=== PATIENT | male | born 1965 | race Caucasian/White ===

== ENCOUNTER → 2016-11-24 | Outpatient (CLI) | payer OTHER ==
--- NOTE | 2016-11-24 12:19 | US ---
Left upper extremity soft tissue ultrasound. HISTORY: Palpable abnormality. TECHNIQUE: Grayscale and color Doppler limited ultrasound of the left upper extremity was performed within the area of clinical concern. FINDINGS: Roughly 5 mm subjacent to the dermis is an irregular hypoechoic mass. This mass measures 3 cm x 2.8 cm x 6.1 cm in diameter. There is an echogenic septum noted. No additional findings noted. A drainable fluid collection. IMPRESSION: The palpable abnormality within the left arm is abnormal. This may be workforce services representative of a thi mass. The patient would likely benefit from evaluation for a possible primary malignancy with additional imaging and a biopsy. Electronically signed by: Fidencio Lieberman MD 11/24/2016 12:18 PM CDT
== END | disposition home or self-care (01) ==
LOC: GMAB 09:08
PROVIDERS: ATTEND Family Medicine
DX: R22.32 Localized swelling, mass and lump, left upper limb (principal); M25.562 Pain in left knee; R53.82 Chronic fatigue, unspecified

== ENCOUNTER → 2016-12-06 | Outpatient (CLI) | payer OTHER | END | disposition home or self-care (01) | LOC: GMAB 10:57 | PROVIDERS: ATTEND Family Medicine | DX: E29.1 Testicular hypofunction (principal) ==

== ENCOUNTER → 2016-12-06 | Outpatient (CLI) | payer OTHER ==
--- NOTE | 2016-12-06 09:08 | US ---
History: Left arm mass. DATE OF SERVICE: 12/06/2016 Superficial ultrasound: Seven images are submitted from an ultrasound-guided aspiration performed by the patient's surgeon. The image demonstrates a needle within the complex lesion which diminishes in overall size. No complication. IMPRESSION: Images from a ultrasound-guided needle aspiration performed by the patient's surgeon. Electronically signed by: Cristela Mcarthur MD 12/06/2016 9:07 AM CDT
--- NOTE | 2016-12-06 11:11 | OP ---
DATE OF PROCEDURE: 12/06/16 PREOPERATIVE DIAGNOSIS: 1. Hypoechoic subcutaneous mass, left upper arm. POSTOPERATIVE DIAGNOSIS: 1. Hypoechoic subcutaneous mass, left upper arm. PROCEDURE: 1. Sonographically guided aspiration of subcutaneous mass times 2 of the upper arm. SURGEON: Yunior Wheatley MD. BLOCK CAPTAIN: None. ANESTHESIA: Local infiltration of 1% lidocaine. INDICATION: The patient is a 51-year-old male who had a flu shot in his deltoid in June of last year. At some point, he has developed recently a mass starting about Angel[place]. It is distal to the deltoid injection site. It has gotten bigger and tender. There has been no drainage, no overlying erythema , no fever or chills. There is no history of trauma. Ultrasound revealed this to be a hypoechoic mass. He was brought to the Ultrasound Suite today for sonographically guided aspiration and/or needle core biopsy under local anesthesia. FINDINGS: Approximately 45 mL of purulent, non-smelling fluid was obtained. The second cavity was bloodier. These masses were noted to have gotten significantly smaller with the aspiration. PROCEDURE: The patient was placed in the supine position. His left arm was examined using the ultrasound probe. The proximal arm was prepped with Betadine paint and then draped with towels. Local infiltration of anesthesia was obtained with 1% lidocaine. First, a 25 gauge needle was introduced into the lesion, then the 18 gauge needle was introduced and fluid was easily obtained. It was sent for culture and cytology. A more distal separate lesion was again identified. The arm was again prepped and draped. Local infiltration of anesthesia was obtained and, again, a 25 gauge needle was first advanced, then the 18 gauge needle was advanced. A small amount of somewhat bloodier fluid was obtained. This also was sent for cytology, gram stain, and culture. The patient tolerated the procedure well. Sterile pressure dressing was applied. There was no blood loss. #[id number] [facility]
== END | disposition home or self-care (01) ==
LOC: US 07:40
PROVIDERS: ATTEND Surgery
PROC: 0X9 Anatomical Regions, Upper Extremities, Drainage (ICD-10-PCS; principal; 2016-12-06)
PROC: BH47ZZZ Ultrasonography of Upper Extremity (ICD-10-PCS; 2016-12-06)
PROC: 0X9 Anatomical Regions, Upper Extremities, Drainage (ICD-10-PCS; 2016-12-06)
DX: R22.9 Localized swelling, mass and lump, unspecified (principal)

== ENCOUNTER → 2017-12-06 | Outpatient (CLI) | payer OTHER | LOC: GMAB 17:19 | PROVIDERS: ATTEND Family Medicine | DX: Z00.00 Encounter for general adult medical examination without abnormal findings (principal); R07.9 Chest pain, unspecified | CPT/HCPCS: 83880; 84403; 84443; G0103 ==

== ENCOUNTER → 2019-03-12 | Outpatient (CLI) | payer OTHER | LOC: GMAE 10:19 | PROVIDERS: ATTEND Family Medicine | DX: Z00.00 Encounter for general adult medical examination without abnormal findings (principal) ==

== ENCOUNTER → 2020-05-05 | Outpatient (CLI) | payer OTHER | END | disposition home or self-care (01) | LOC: GMAE 10:15 | PROVIDERS: ATTEND Family Medicine | DX: Z00.00 Encounter for general adult medical examination without abnormal findings (principal); R53.81 Other malaise; R94.8 Abnormal results of function studies of other organs and systems ==

== ENCOUNTER → 2020-06-14 | Outpatient (CLI) | payer OTHER ==
--- NOTE | 2020-06-14 10:32 | RAD ---
EXAM DESCRIPTION: Knee,Right Complete CLINICAL HISTORY: 54 years Male, PAIN IN RIGHT KNEE COMPARISON: None. TECHNIQUE: 4 view radiograph of the right knee. IMPRESSION: No acute displaced fracture. No dislocation. Mild joint space narrowing of the weightbearing knee compartments. Minimal subchondral sclerosis on the medial tibial plateau. No joint line osteophytosis. Mild patellofemoral arthrosis. Question of small suprapatellar knee joint effusion. Minimal lateral patellar tilt. No subluxation. No radiographically apparent soft tissue abnormality. Electronically signed by: Conor Pollard MD 06/14/2020 10:30 AM CDT
--- NOTE | 2020-06-14 10:38 | RAD ---
EXAM DESCRIPTION: Pelvis CLINICAL HISTORY: 54 years Male, HIP PAIN RIGHT COMPARISON: None. FINDINGS: Single view of the pelvis demonstrates the bony pelvic ring intact. SI joints pelvic sidewall as well as superior and inferior pubic rami intact. Normal appearance of the hips bilaterally. No fracture or dislocation or osteonecrosis noted on the right. No bony or soft tissue masses seen. IMPRESSION: Normal pelvis one view. Electronically signed by: Pierre Paulson MD 06/14/2020 10:36 AM CDT
== END ==
LOC: RAD 08:00
PROVIDERS: ATTEND Orthopaedic Surgery
DX: M25.559 Pain in unspecified hip (principal); M22.2X1 Patellofemoral disorders, right knee; M24.19 Other articular cartilage disorders, other specified site; M25.862 Other specified joint disorders, left knee; M25.461 Effusion, right knee

== ENCOUNTER → 2020-06-23 | Outpatient (CLI) | payer OTHER ==
--- NOTE | 2020-06-24 07:49 | MRI ---
Study: MRI of the Right Knee. Indication: TEAR OF MEDIAL MENISCUS Technique: Multiplanar, multi sequence MRI of the right knee was obtained without intravenous contrast. Comparison: None. Findings: ACL, PCL, and lateral collateral ligament complex intact. MCL is lax and bowed indicating sequela of a prior MCL sprain. No acute tear. Obliquely oriented increased PD signal posterior horn and body medial meniscus but without clear articular surface disruption to definitively indicate tear. Lateral meniscus intact. Areas of grade 2 and 3 chondral thinning medial and lateral knee compartments. Low-grade tendinosis quadriceps tendon insertion. Patellar tendon intact. Patella normally located. No high-grade chondral defect patella. Subtle grade 2 chondrosis inferior margin midline and medial femoral trochlea. Small knee effusion. Minimal thickening medial patellar plica. No acute fracture. Mild subcutaneous edema anteromedially. Impression: Obliquely oriented degenerative signal posterior horn and body medial meniscus but without definitive tear. Short-term follow-up MRI may prove useful. Grade 2/3 chondral thinning medial and lateral knee compartments with subtle grade 2 chondrosis medial femoral trochlea. Small knee effusion. Additional findings as above. Electronically signed by: Carlos Galeana MD 06/24/2020 7:47 AM CDT
== END ==
LOC: MRI 06:48
PROVIDERS: ATTEND Orthopaedic Surgery
DX: M23.321 Other meniscus derangements, posterior horn of medial meniscus, right knee (principal); M25.461 Effusion, right knee; M24.19 Other articular cartilage disorders, other specified site

== ENCOUNTER 2020-08-23 03:39 | Emergency (ER) | payer OTHER ==
[2020-08-23] MEDS ORDERED: ACETAMINOPHEN 500 MG TAB PO ONE (04:10)
[2020-08-23] MEDS ORDERED: AZITHROMYCIN 250 MG TAB PO ONE (04:19)
[2020-08-23] MEDS ORDERED: cefTRIAXone SODIUM 1 GM in SODIUM CHL 0.9% 50ML MIN-BAG+ 50 ML IVPB ONE (04:19)
[2020-08-23] MEDS ORDERED: DEXAMETHASONE INJ 10 MG/ML VIAL IV ONE (04:20)
--- NOTE | 2020-08-23 04:25 | ED.PDOC ---
History of Present Illness - General Chief Complaint: General Stated Complaint: COVID +,N/V, SOB, shaking Time Seen by Provider: 08/23/20 04:10 Source: patient Exam Limitations: no limitations - History of Present Illness Timing/Duration: other - 4 days Improving Factors: nothing Worsening Factors: nothing Associated Symptoms: denies symptoms Allergies/Adverse Reactions: Allergies NO KNOWN ALLERGY Allergy (Verified 08/23/20 04:12) Home Medications: Ambulatory Orders Acetaminophen [Tylenol] 650 mg PO Q4HR PRN 7 Days #30 cap 08/23/20 Albuterol Sulfate [Albuterol Sulfate Hfa] 08/23/20 Losartan Potassium 08/23/20 Prednisone 08/23/20 Review of Systems - Review of Systems Constitutional: States: chills, fever EENTM: Denies: blurred vision, tearing Respiratory: States: cough, short of breath Cardiology: Denies: chest pain, palpitations Gastrointestinal/Abdominal: Denies: abdominal pain, diarrhea, nausea Genitourinary: Denies: discharge, frequency, hematuria Musculoskeletal: Denies: back pain, gout, muscle pain, muscle stiffness Skin: Denies: see HPI, change in color, dryness, lesions Neurological: States: anxiety. Denies: depressed, emotional problems, paresthesia, pre-existing deficit, seizure Endocrine: Denies: flushing, intolerance to cold, intolerance to heat, unexplained weight gain, unexplained weight loss Hematologic/Lymphatic: Denies: anemia, easy bleeding, easy bruising Past Medical History (General) - Patient Medical History Hx Seizures: No Hx Stroke: No Hx Dementia: No Hx Asthma: No Hx of COPD: No Hx Cardiac Disorders: No Hx Congestive Heart Failure: No Hx Pacemaker: No Hx Hypertension: Yes Hx Thyroid Disease: No Hx Diabetes: No Hx Gastroesophageal Reflux: No Hx Renal Disease: No Hx Cancer: No Hx of HIV: No Hx Hepatitis C: No Hx MRSA: No Surgical History: cholecystectomy - Vaccination History Hx Influenza Vaccination: Yes - Social History Hx Tobacco Use: No Hx Chewing Tobacco Use: Yes Hx Alcohol Use: No Family Medical History - Family History Father Family History: No Known Living Status: Physical Exam - Physical Exam General Appearance: Alert, Comfortable Eye Exam: bilateral normal Ears, Nose, Throat: hearing grossly normal, normal ENT inspection, normal pharynx, abnormal TM (R) Neck: full range of motion, supple, normal inspection Respiratory: chest non-tender, lungs clear, normal breath sounds, no respiratory distress Cardiovascular/Chest: regular rate, rhythm, no edema, no gallop, tachycardia Peripheral Pulses: radial,right: 2+, radial,left: 2+, posterior tibialis,right: 2+, posterior tibialis,left: 2+ Gastrointestinal/Abdominal: normal bowel sounds, non tender, soft, no organomegaly, no pulsatile mass Back Exam: normal inspection, no CVA tenderness, no vertebral tenderness Extremity: normal range of motion, non-tender, normal inspection Neurologic: valve assembler II-XII nml as tested, no motor/sensory deficits, alert, other - anxious Progress - EKG/XRAY/CT CT: [id number] Departure - Departure Clinical Impression: COVID- 2019 novel coronavirus–infected pneumonia (NCIP)#8211;infected pneumonia (NCIP), Hypokalemia Disposition: Discharge to Home or Self Care Condition: Good Departure Forms: ED Discharge - Pt. Copy, Patient Portal Self Enrollment Instructions: Isolation Precautions Referrals: Alonzo Dooley MD [Primary Care Provider] - 1-2 Weeks Prescriptions: Acetaminophen [Tylenol] 650 mg PO Q4HR PRN 7 Days #30 cap PRN Reason: Fever 100.4 Or Greater Home Medications: Ambulatory Orders Acetaminophen [Tylenol] 650 mg PO Q4HR PRN 7 Days #30 cap 08/23/20 Albuterol Sulfate [Albuterol Sulfate Hfa] 08/23/20 Losartan Potassium 08/23/20 Prednisone 08/23/20 Comments: Please complete your medications as prescribed. Follow-up with primary care physician 1 to 2 days Return to the emergency department immediately if you develop or any hypoxia any trouble breathing
[2020-08-23] MEDS ORDERED: POTASSIUM CHLORIDE 20 MEQ TAB PO ONE (04:27)
--- NOTE | 2020-08-23 04:42 | RAD ---
EXAM DESCRIPTION: Chest,1 View CLINICAL HISTORY: SOB, COVID positive COMPARISON: None. FINDINGS: Single frontal radiograph view of the chest. Cardiomediastinal silhouette: Normal size and contour. Lungs: Patchy left mid and lower lung airspace opacity. Low lung volumes. Leads overlie the chest. No pneumothorax. Bones: No acute osseous abnormality. Upper abdomen: No abnormality identified. IMPRESSION: 1. Patchy left mid and lower lung airspace opacities concerning for pneumonia. Low lung volumes. Electronically signed by: Farrukh Lamb 08/23/2020 4:41 AM [facility]
[2020-08-23 05:00] VITALS: O2SAT 95
[2020-08-23] MEDS ORDERED: SODIUM CHLORIDE 0.9% 500ML 500 ML IVS ONE (05:03)
--- NOTE | 2020-08-23 05:35 | CT ---
CTA CHEST WITH CONTRAST CLINICAL HISTORY: Elevated ddimer COMPARISON: None. TECHNIQUE: Axial CT imaging of the thorax utilizing intravenous contrast. Reformatted multiplanar images obtained including reconstructed maximum intensity projection images. This exam was performed according to our departmental dose-optimization program which includes automated exposure control, adjustment of the mA and/or kV according to patient size and/or use of iterative reconstruction technique FINDINGS: PULMONARY ARTERIES: There is normal caliber main pulmonary artery. No filling defect in the right atrium, right ventricle, central pulmonary arteries. Peripheral pulmonary artery evaluation is extremely limited due to significant beam hardening artifact from the strongly opacified superior vena cava. This is resulting in artifactual densities throughout the peripheral vessels. Normal HEART/GREAT VESSELS: Heart is minimally enlarged. No pericardial fluid. Normal caliber thoracic aorta. No dissection or aneurysm. MEDIASTINUM/DANIS: No adenopathy. Normal central airways. Normal esophagus. LUNGS/PLEURA: Multifocal scattered small groundglass densities throughout the right and left lung involving all lobes. Minimal bilateral lower lobe subpleural atelectasis. No edema. No pleural fluid or pneumothorax. CHEST WALL/SOFT TISSUES: No axillary lymphadenopathy. The sternum is intact. Mild lower thoracic spondylosis. UPPER ABDOMEN: The imaged portions of the liver, spleen, bowel loops appear normal. IMPRESSION: 1. No pulmonary embolism. 2. Multifocal bilateral pneumonia. Imaging features can be seen with viral pneumonia, though are nonspecific and can occur with a variety of infectious and noninfectious processes. [PneInd] Reference: https://pubs.rsna.org/doi/full/10.1148/ryct.[email or web address] 08/23/2020 5:34 AM CLIENT ADMINISTRATOR
[2020-08-23 06:16] VITALS: BP 128/64; TEMP 98.7
--- NOTE | 2020-08-23 06:28 | CT ---
CTA CHEST WITH CONTRAST CLINICAL HISTORY: Elevated ddimer COMPARISON: None. TECHNIQUE: Axial CT imaging of the thorax utilizing intravenous contrast. Reformatted multiplanar images obtained including reconstructed maximum intensity projection images. This exam was performed according to our departmental dose-optimization program which includes automated exposure control, adjustment of the mA and/or kV according to patient size and/or use of iterative reconstruction technique FINDINGS: PULMONARY ARTERIES: There is normal caliber main pulmonary artery. No filling defect in the right atrium, right ventricle, central pulmonary arteries. Peripheral pulmonary artery evaluation is extremely limited due to significant beam hardening artifact from the strongly opacified superior vena cava. This is resulting in artifactual densities throughout the peripheral vessels. HEART/GREAT VESSELS: Heart is minimally enlarged. No pericardial fluid. Normal caliber thoracic aorta. No dissection or aneurysm. MEDIASTINUM/DANIS: No adenopathy. Normal central airways. Normal esophagus. LUNGS/PLEURA: Multifocal scattered small groundglass densities throughout the right and left lung involving all lobes. Minimal bilateral lower lobe subpleural atelectasis. No edema. No pleural fluid or pneumothorax. CHEST WALL/SOFT TISSUES: No axillary lymphadenopathy. The sternum is intact. Mild lower thoracic spondylosis. UPPER ABDOMEN: The imaged portions of the liver, spleen, bowel loops appear normal. IMPRESSION: 1. No pulmonary embolism. 2. Multifocal bilateral pneumonia. Imaging features can be seen with viral pneumonia, though are nonspecific and can occur with a variety of infectious and noninfectious processes. [PneInd] Reference: https://pubs.rsna.org/doi/full/10.1148/ryct.[email or web address] Electronically signed by: Nadine Jimenez DO 08/23/2020 6:[address] [facility]
== END 2020-08-23 06:16 | disposition home or self-care (01) ==
LOC: ER 03:39
DX: U07.1 COVID-19 (principal); J12.89 Other viral pneumonia; E87.6 Hypokalemia; I10 Essential (primary) hypertension; Z87.891 Personal history of nicotine dependence
CPT/HCPCS: 71045; 71275; 80053; 82550; 83605; 83615; 83735; 83880; 84484; 85025; 85379; 85730; 86140; 87040; 93005; J0696; J1100; J7040; J7050; Q0144

== ENCOUNTER → 2020-08-24 | Outpatient (CLI) | payer OTHER | LOC: GMAE 11:16 | PROVIDERS: ATTEND Family Medicine | DX: B34.2 Coronavirus infection, unspecified (principal) ==

== ENCOUNTER 2020-08-25 10:21 | Inpatient (IN) | payer OTHER ==
[2020-08-25] MEDS ORDERED: ALPRAZolam 0.25 MG TAB PO ONE (10:28)
--- NOTE | 2020-08-25 10:32 | ED.PDOC ---
History of Present Illness - General Time Seen by Provider: 08/25/20 10:26 Source: patient, RN/ Additional Information: DR PADILLA - History of Present Illness Initial Comments: PATIENT SENT IN BY HIS PCP BECAUSE HE LOOKED MORE SOB ON TELEMEDICINE VISIT TODAY. PATIENT W/ ONSET OF SYMPTOMS 11 DAYS AGO, DX WITH COVID 1 WEEK AGO. WITH SIMILAR SYMPTOMS. PATIENT REPORTS THAT HE CONTINUES TO HAVE FEVER AT HOME TO 104. Severity: severe Activities at Onset: none Possible Cause: other - COVID 19 Improving Factors: nothing Worsening Factors: nothing Associated Symptoms: anxiety, cough, fever, lightheadedness Respiratory Risk Factors: other - COVID Allergies/Adverse Reactions: Allergies NO KNOWN ALLERGY Allergy (Verified 08/23/20 04:12) Home Medications: Ambulatory Orders Acetaminophen [Tylenol] 650 mg PO Q4HR PRN 7 Days #30 cap 08/23/20 Albuterol Sulfate [Albuterol Sulfate Hfa] 08/23/20 Losartan Potassium 08/23/20 Prednisone 08/23/20 Review of Systems - Review of Systems Constitutional: States: see HPI EENTM: States: see HPI Respiratory: States: see HPI Cardiology: States: no symptoms reported Gastrointestinal/Abdominal: States: diarrhea, nausea, vomiting Genitourinary: States: no symptoms reported Musculoskeletal: States: muscle pain, muscle stiffness Skin: States: no symptoms reported Neurological: States: no symptoms reported Past Medical History (General) - Patient Medical History Hx Seizures: No Hx Stroke: No Hx Dementia: No Hx Asthma: No Hx of COPD: No Hx Cardiac Disorders: No Hx Congestive Heart Failure: No Hx Pacemaker: No Hx Hypertension: Yes Hx Thyroid Disease: No Hx Diabetes: No Hx Gastroesophageal Reflux: No Hx Renal Disease: No Hx Cancer: No Hx of HIV: No Hx Hepatitis C: No Hx MRSA: No - Vaccination History Hx Influenza Vaccination: Yes - Social History Hx Tobacco Use: No Hx Chewing Tobacco Use: Yes Hx Alcohol Use: No Family Medical History - Family History Father Family History: No Known Living Status: Physical Exam - Physical Exam General Appearance: Alert, Anxious, Well Developed, Well Groomed, Well Hydrated, Well Nourished Neck: non-tender, full range of motion, supple Respiratory: chest non-tender, lungs clear, normal breath sounds Cardiovascular/Chest: normal peripheral pulses, regular rate, rhythm, no edema, no gallop Gastrointestinal/Abdominal: normal bowel sounds, non tender, soft, no organomegaly, no pulsatile mass Progress - Progress Progress: 08/25/20 12:[address] PADILLA, HE WANTS TO DISCUSS WITH [facility] HOSPITALIST ABOUT ADMITTING THE PATIENT. AWATING KORY Douglas FOR ADMIT ORDERS OR OTHER DISPOSITION PER DR PADILLA. Departure - Departure Clinical Impression: Pneumonia due to COVID-19 virus Time of Disposition: 12:07 Disposition: Admit Patient Condition: Fair Instructions: Coronavirus Disease 2019 (COVID-19) Referrals: Alonzo Dooley MD [Primary Care Provider] - 1-2 Weeks Home Medications: Ambulatory Orders Acetaminophen [Tylenol] 650 mg PO Q4HR PRN 7 Days #30 cap 08/23/20 Albuterol Sulfate [Albuterol Sulfate Hfa] 08/23/20 Losartan Potassium 08/23/20 Prednisone 08/23/20
--- NOTE | 2020-08-25 10:47 | RAD ---
EXAM: Chest,1 View INDICATION: 55 years Male, SOB COMPARISON: Single view of the chest 08/23/2020 FINDINGS: Single view of the chest was performed. Heart size is within normal limits. Mild interval worsening of patchy pulmonary infiltrates in the bilateral mid and lower lung zones. No pleural effusion. No pneumothorax. The osseous structures are intact. Unremarkable appearance of the visualized upper abdomen. IMPRESSION: Worsening bilateral patchy pulmonary infiltrates. Findings remain concerning for pneumonia. Electronically signed by: Briana Damian MD 08/25/2020 10:46 AM [facility]
--- NOTE | 2020-08-25 13:02 | HP ---
SUPERVISING PHYSICIAN: Zhen Stewart MD CHIEF COMPLAINT: Shortness of breath and anxiety. HISTORY OF PRESENT ILLNESS: This is a 55-year-old male patient who was diagnosed with COVID-19 on 08/18/20. Apparently, up to that point, he had had symptoms for several days, but did not test positive until 08/18. He actually went to the Emergency Room yesterday and was found to have no significant hypoxia, but was given Zithromax, cefdinir as well as dexamethasone. At home, he failed to really improve and was getting quite anxious when he would get up. He came to the ER again and in the ER, his saturations were marginal. At rest, they were about 91% on room air and with ambulation, 89% on room air. He does get very short of breath with exertion. D-dimer was elevated at 543, potassium 3.3, C-reactive protein elevated 16.4. Chest x-ray was done and showed worsening bilateral patchy infiltrates consistent with COVID pneumonitis. Due to the hypoxia and anxiety, he has been referred for admission, however, he was given 1 mg of Xanax in the ER and this really helped his anxiety levels. However, once again, with ambulation, he was about 89% on room air. His is at bedside. PAST MEDICAL HISTORY: 1. Abnormal liver function testing. 2. Kidney stones. PAST SURGICAL HISTORY: None. MEDICATIONS: Please see medication reconciliation list once verified in the computer. ALLERGIES: NO KNOWN DRUG ALLERGIES. FAMILY HISTORY: Father with aortic aneurysm. Brother with hypertension. SOCIAL HISTORY: He does not smoke, but uses smokeless tobacco and frequent alcohol use. No illegal drugs. REVIEW OF SYSTEMS: CONSTITUTIONAL: Positive for fever, chills and fatigue. HEENT: Positive for nasal drainage. No sore throat. RESPIRATORY: Positive for cough and shortness of breath. No hemoptysis or pleuritic chest pain. CARDIOVASCULAR: No chest pain, palpitations or peripheral edema. GASTROINTESTINAL: No nausea, vomiting, diarrhea, constipation or abdominal pain. GENITOURINARY: No dysuria, frequency or flank pain. ENDOCRINE: No polydipsia, polyuria or polyphagia. No heat or cold intolerance. MUSCULOSKELETAL: No joint pain, joint swelling or muscle cramps. NEUROLOGIC: No syncope, paresthesias or seizures. PHYSICAL EXAMINATION: VITAL SIGNS: Blood pressure 124/66, heart rate 75, respiratory rate 22, temperature 97.6. It was as high as 99.9 in the ER earlier. Oxygen saturation 89% on room air currently. GENERAL: Mr. Dodd is a 55-year-old male patient who is currently in no active distress. NEUROLOGIC: The patient is alert. LUNGS: Bibasilar rales. CARDIOVASCULAR: Regular rate and rhythm. Normal S1, S2. ABDOMEN: Soft. Positive bowel sounds. EXTREMITIES: Lower extremities with no edema. IMPRESSION: 1. COVID pneumonitis. 2. Anxiety. 3. Hypokalemia. PLAN: The patient will be admitted to the hospital for treatment of COVID pneumonitis with scheduled Remdesivir, dexamethasone as well as empiric antibiotic therapy. Additionally, I will place him on scheduled albuterol MDI and Mucinex. I will resume his home medications once verified in the computer. I will put him on anticoagulation as well with prophylactic Lovenox. If there is any increase in the D-dimer, I would anticipate that he would need therapeutic anticoagulation. We will recheck COVID labs and chest x-rays as needed. #[id number] MTDD
[2020-08-25] MEDS ORDERED: SODIUM CHLORIDE 0.9% (FLUSH) 10 ML SYG IV PRN (13:23)
[2020-08-25] MEDS ORDERED: REMDESIVIR 200 MG in SODIUM CHLORIDE 0.9% 250ML 250 ML IVPB ONE (13:25)
[2020-08-25] MEDS ORDERED: IV SET AND CAP CHANGE INJ INJ SCH (13:30)
[2020-08-25] MEDS ORDERED: cefTRIAXone SODIUM 1 GM in SODIUM CHL 0.9% 50ML MIN-BAG+ 50 ML IVPB SCH (13:30)
[2020-08-25] MEDS ORDERED: AZITHROMYCIN IV 500 MG in SODIUM CHLORIDE 0.9% 250ML 250 ML IVPB SCH ×3 (13:30→19:57)
[2020-08-25] MEDS ORDERED: SODIUM CHL 0.9% 50ML MIN-BAG+ 0 ML IVPB ONE (14:22)
[2020-08-25] MEDS ORDERED: cefTRIAXone SODIUM 1 GM VIAL ONE (14:22)
[2020-08-25] MEDS: cefTRIAXone SODIUM 1 GM in SODIUM CHL 0.9% 50ML MIN-BAG+ 50 ML IVPB SCH (14:37)
[2020-08-25] MEDS: ENOXAPARIN SODIUM 40 MG/0.4 ML SYG SUBCU SCH (14:43)
[2020-08-25] MEDS: DEXAMETHASONE INJ 4 MG/ML VIAL IV SCH (14:46)
[2020-08-25] MEDS ORDERED: ACETAMINOPHEN 325 MG TAB PO ONE (16:59)
[2020-08-25] MEDS: ALBUTEROL INHALER 64 PUFF/8GM INH SCH ×2 (17:05→20:30)
[2020-08-25] MEDS: AZITHROMYCIN IV 500 MG in SODIUM CHLORIDE 0.9% 250ML 250 ML IVPB SCH ×3 (18:20→20:01)
[2020-08-25] MEDS ORDERED: ACETAMINOPHEN 650 MG PO PRN (20:13)
[2020-08-25] MEDS: guaiFENesin ER TAB 600 MG TAB PO SCH (21:10)
[2020-08-26] MEDS ORDERED: ONDANSETRON INJ 4 MG/2 ML VIAL IV PRN (02:21)
[2020-08-26] MEDS ORDERED: ALPRAZolam 0.5 MG TAB ONE (02:22)
[2020-08-26] MEDS: ALPRAZolam 0.5 MG TAB PO PRN ×3 (02:25→21:21)
[2020-08-26] MEDS: ACETAMINOPHEN 325 MG TAB PO PRN ×3 (02:27→21:22)
[2020-08-26] MEDS ORDERED: ALBUTEROL INHALER 64 PUFF/8GM INH PRN (02:32)
[2020-08-26] MEDS: LOSARTAN POTASSIUM 100 MG TAB PO SCH (08:16)
[2020-08-26] MEDS: guaiFENesin ER TAB 600 MG TAB PO SCH ×2 (08:17→21:21)
[2020-08-26] MEDS: DEXAMETHASONE INJ 4 MG/ML VIAL IV SCH (08:17)
[2020-08-26] MEDS: ALBUTEROL INHALER 64 PUFF/8GM INH SCH ×4 (09:00→20:30)
[2020-08-26] MEDS ORDERED: REMDESIVIR 100 MG in SODIUM CHLORIDE 0.9% 250ML 250 ML IVPB SCH (09:00)
[2020-08-26] MEDS: REMDESIVIR 100 MG in SODIUM CHLORIDE 0.9% 250ML 250 ML IVPB SCH (11:59)
[2020-08-26] MEDS: ENOXAPARIN SODIUM 40 MG/0.4 ML SYG SUBCU SCH (13:06)
[2020-08-26] MEDS: cefTRIAXone SODIUM 1 GM in SODIUM CHL 0.9% 50ML MIN-BAG+ 50 ML IVPB SCH (15:24)
[2020-08-26] MEDS ORDERED: BIFIDOBACTERIUM INFANTIS 4 MG CAP ONE (19:39)
[2020-08-26] MEDS: AZITHROMYCIN IV 500 MG in SODIUM CHLORIDE 0.9% 250ML 250 ML IVPB SCH (21:09)
[2020-08-26] MEDS: BIFIDOBACTERIUM INFANTIS 4 MG CAP PO SCH (21:21)
[2020-08-27] MEDS ORDERED: PANTOPRAZOLE SODIUM TAB 40 MG PO ONE (05:18)
[2020-08-27] MEDS: ALPRAZolam 0.5 MG TAB PO PRN ×2 (05:20→12:16)
[2020-08-27] MEDS ORDERED: SODIUM CHLORIDE 0.9% 500ML 500 ML IVS ONE (06:10)
--- NOTE | 2020-08-27 06:19 | RAD ---
EXAM: XR Chest, 1 View CLINICAL HISTORY: The patient is 55 years old and is Male; covid-19 TECHNIQUE: Frontal view of the chest. COMPARISON: Chest x-ray 08/25/2020. FINDINGS: Lungs: Patchy bilateral pulmonary opacities, similar to the prior exam. Pleural space: Unremarkable. No pneumothorax. Heart: Unremarkable. No cardiomegaly. Mediastinum: Unremarkable. Bones/joints: Unremarkable. IMPRESSION: Patchy bilateral pulmonary opacities, similar to the prior exam. Electronically signed by: Jose Pereira MD 08/27/2020 6:18 AM [employer]
[2020-08-27] MEDS ORDERED: PANTOPRAZOLE SODIUM TAB 40 MG PO SCH (06:30)
[2020-08-27] MEDS: ALBUTEROL INHALER 64 PUFF/8GM INH SCH ×2 (07:55→12:40)
--- NOTE | 2020-08-27 07:57 | PN ---
SUPERVISING PHYSICIAN: Zhen Stewart MD DATE: SUBJECTIVE: The patient has no complaints. Nursing has reported that he is very anxious again today and oxygen saturation has been in the upper 80s when he exerts himself. He denies chest pain, nausea or vomiting. OBJECTIVE: VITAL SIGNS: Temperature 97.9, heart rate 55, blood pressure 131/80, respiratory rate 20, oxygen saturation 94% on room air. He does drop to the low 90s to upper 80s with exertion. RESPIRATORY: Diminished breath sounds at the bases. CARDIAC: Regular rate and rhythm. LABORATORY: WBC 12,400 with hemoglobin 12.5, hematocrit 36.8, he has a left shift on his differential. D-dimer is 361, Electrolytes are basically within normal limits with the exception of his calcium is slightly low at 8.3. BUN 21, creatinine 0.75. ALT is 81. C-reactive protein 20.3. All other labs and films have been reviewed via the EMR. ASSESSMENT: 1. COVID pneumonitis. 2. Anxiety. 3. Hypokalemia, improved. PLAN: We will continue present supportive care. Continue with Covid guidelines including the medications and lab. He does continue to have some problems with anxiety and those medications may have to be adjusted but hopefully we can wean him off oxygen and discharge him in the next one to two days once stabilized. #[id number] MTDD
[2020-08-27] MEDS: guaiFENesin ER TAB 600 MG TAB PO SCH (08:57)
[2020-08-27] MEDS: LOSARTAN POTASSIUM 100 MG TAB PO SCH (08:57)
[2020-08-27] MEDS: BIFIDOBACTERIUM INFANTIS 4 MG CAP PO SCH (08:57)
[2020-08-27] MEDS ORDERED: DEXAMETHASONE INJ 10 MG/ML VIAL IV SCH (09:00)
[2020-08-27] MEDS: REMDESIVIR 100 MG in SODIUM CHLORIDE 0.9% 250ML 250 ML IVPB SCH (11:39)
[2020-08-27] MEDS ORDERED: cefTRIAXone SODIUM 1 GM in SODIUM CHL 0.9% 50ML MIN-BAG+ 50 ML IVPB ONE (12:15)
[2020-08-27] MEDS ORDERED: AZITHROMYCIN 250 MG TAB PO ONE ×2 (12:15→12:17)
[2020-08-27 12:51] VITALS: BP 160/93; TEMP 98
[2020-08-27] MEDS: ENOXAPARIN SODIUM 40 MG/0.4 ML SYG SUBCU SCH (13:15)
[2020-08-27 13:34] VITALS: O2SAT 95
--- NOTE | 2020-09-15 11:58 | DS ---
SUPERVISING PHYSICIAN: Zhen Stewart MD DISCHARGE DIAGNOSES: 1. Covid pneumonitis. 2. Anxiety. 3. Hypokalemia, improved. HISTORY OF PRESENT ILLNESS: This is a 55-year-old male patient who was diagnosed with COVID on 08/18/20. He had had symptoms several days prior to that but did not test positive until that time. He had gone to the Emergency Room the day before but had no significant hypoxia and was given Zithromax, cefdinir as well as dexamethasone. At home, he failed to improve and was getting quite anxious when he would get up. He came back to the Emergency Room and in the ER his saturations were marginal. At rest, they were about 91% on room air and with ambulation, 89% on room air. He got very short of breath with exertion. His D-dimer was elevated at 543, potassium 3.3, C-reactive protein was16.4. Chest x-ray showed worsening bilateral patchy infiltrates consistent with COVID pneumonitis. He was referred for admission as he was also very anxious and was given 1 mg of Xanax in the Emergency Room that helped with his anxiety levels. HOSPITAL COURSE: The patient was placed in the hospital and treated for Covid pneumonitis with Remdesivir, dexamethasone as well as Zithromax, Rocephin and Lovenox. He was also given aggressive pulmonary hygiene as well as Mucinex. His home medications were resumed. His Covid labs were tested and monitor closely. Again, his main problem was anxiety and worried about going home. He still became exertionally hypoxic with oxygen saturations in the upper 80s. He was given some routine Xanax and his oxygen was weaned off. This morning, his oxygen saturation was in the upper 90s and only dropped to about 94% with exertion. His vital signs were stable and after a lengthy discussion about anxiety causing some elevated heart rates as well as some tachypnea, the patient agrees that maybe he should be discharged home. LABORATORY: WBCs were up to 12,400 and are no 10,700. His hemoglobin is stable at 12.9 and hematocrit 37.7. He has a mild shift on his differential. D-dimer initially was 543 and is now 331. Electrolytes are basically within normal limits with the exception of his calcium was slightly low at 7.9, C-reactive protein is now 9.3. RADIOLOGY: Final chest x-ray shows patchy bilateral pulmonary opacities similar to prior exam. DISCHARGE PLAN: The patient will be discharged home in stable condition. He is to resume his previous diet and increase his activity as tolerated. He is to followup with Dr. Ernie Fields within the next 2 weeks in addition to his routine medications. He is to continue on Cefdinir, dexamethasone, azithromycin and some Zofran. I have also given him a prescription for Xanax. [place] [facility] was consulted and there were no issues found. He needs to discuss his anxiety Dr. Fields, he need to return to the hospital or followup with Dr. Fields for any problems with complications. DISCHARGE MEDICATIONS: 1. Losartan. 2. Albuterol. 3. Tylenol. 4. Cefdinir. 5. Azithromycin. 6. Dexamethasone. 7. Ibuprofen. 8. Xanax. 9. Zofran. #[id number] MTDD
== END 2020-08-27 14:10 | disposition home or self-care (01) | DRG 177 ==
LOC: ER 10:21 → MS 13:01 → OBSVTOIN 13:01
PROVIDERS: ADMIT Nurse Practitioner; ATTEND Nurse Practitioner Acute Care
PROC: XW033E5 Introduction of Remdesivir Anti-infective into Peripheral Vein, Percutaneous Approach, New Technology Group 5 (ICD-10-PCS; principal; 2020-08-25)
DX: U07.1 COVID-19 (principal); J12.89 Other viral pneumonia; E87.6 Hypokalemia; F41.9 Anxiety disorder, unspecified; F17.220 Nicotine dependence, chewing tobacco, uncomplicated; R09.02 Hypoxemia